=== PATIENT | female | born 1970 | race Caucasian/White ===

== ENCOUNTER 2024-09-26 20:19 | Emergency (ER) | payer BC, SELFPAY ==
[2024-09-26 20:26] VITALS: BP 122/78
[2024-09-26 21:00] LABS: % Basophils 0.6 % (0-2); % Immature Granulocytes 0.1 % (0-0.5); % Lymphocytes 24.3 % (20.5-51.1); % Monocytes 8.5 % (1.7-9.3); % Neutrophils 65.5 % (42.2-75.2); Absolute Eosinophils 0.1 10^3/uL (0-0.7); Absolute Lymphocytes 1.8 10^3/uL (1.2-3.4); Absolute Monocytes 0.6 10^3/uL (0.1-0.6); Absolute Neutrophils 4.8 10^3/uL (1.4-6.5); Hematocrit 46.1 % (37.0-47.0); Hemoglobin 15.5 g/dL (12.0-16.0); Mean Corp Hgb Conc. 33.6 g/dL (33.0-37.0); Mean Corpuscular Hgb 30.6 pg (27.0-31.0); Mean Corpuscular Volume 90.9 fL (81.0-99.0); Mean Platelet Volume 9.8 fL (7.4-10.4); Nucleated Red Blood Cells % 0 %; Platelet Count 155 10^3/uL (130-400); Red Blood Cell Count 5.07 10^6/uL (4.20-5.40); White Blood Cell Count 7.3 10^3/uL (4.8-10.8)
[2024-09-26 21:29] LABS: Troponin I < 0.012 ng/ml
[2024-09-26 21:30] LABS: ALT (SGPT) 15 U/L (0-35); AST (SGOT) 17 U/L (14-36); Albumin 4.3 g/dl (3.5-5.0); Alkaline Phosphatase 83 U/L (38-126); Blood Urea Nitrogen 8 mg/dl (7-17); Calcium 10.4 mg/dl (8.4-10.2); Carbon Dioxide 27 mmol/L (22-30); Chloride 102 mmol/L (98-107); Glucose 117 mg/dl (70-99); Potassium 4.3 mmol/L (3.5-5.1); Sodium 136 mmol/L (135-145); Total Bilirubin 0.6 mg/dl (0.2-1.3); Total Protein 6.9 g/dl (6.3-8.2); eGFR > 60.00
[2024-09-26 22:16] LABS: D-Dimer 0.61 ug/mlFEU (0.00-0.50)
[2024-09-26 23:02] VITALS: BP 130/84; BMI 16.8
[2024-09-27 01:00] VITALS: BP 120/74
[2024-09-27 03:11] VITALS: BP 96/57
--- NOTE | 2024-09-27 03:12 | ED.GENMED ---
History of Present Illness
General
Chief Complaint: Breathing Problem
Source: patient and spouse
Time Seen by Provider: 09/26/24 22:51
History of Present Illness
History of Present Illness:
54-year-old female history of COPD who does continue to smoke. She presents with pain in her right upper back. States it hurts sort of radiating around to the right side when she takes a deep breath. Sent from urgent care to rule out a PE.
Patient states it hurts most when she takes deep breath. Mild cough but no fevers. No vomiting. No chest pain.
Past History
Past History
ED Past Medical History: COPD
ED Past Surgical History: Orthopedic
Social History
Tobacco: Smoker
Phy Exam
Physical Exam
Physical Exam:
CONSTITUTIONAL Patient alert and oriented to person, place and time. Well-appearing. Vital signs reviewed.
HEAD atraumatic, normocephalic.
EYES eyelids normal to inspection, Extraocular muscles intact, Conjunctiva normal, Sclera normal.
NECK normal range of motion, Trachea midline, no jugular venous distention.
RESPIRATORY CHEST No respiratory distress noted, Chest expansion equal, Bilateral breath sounds clear.
CARDIOVASCULAR regular rate and rhythm, Heart sounds normal.
ABDOMEN abdomen nontender, Bowel sounds normal. No distention.
BACK normal inspection, no obvious deformities
UPPER EXTREMITY range of motion normal, Motor strength normal, no cyanosis, no edema.
LOWER EXTREMITY range of motion normal, Motor strength normal, no cyanosis, no edema.
NEURO Speech normal, No focal motor deficits, Estrella coma scale 15, Memory normal, Cranial Nerves intact to screening exam.
SKIN skin warm, dry, and normal in color.
Scores
Heart Failure Risk
Heart Failure Risk Score: Not Applicable
Course
Orders/Labs/Results
Orders:
Orders
09/26/24 20:24
ECG [Electrocardiogram (*1)] Urgent
Reason for Study: Shortness of Breath
EKG- Treatment ONCE
09/26/24 20:50
CMP [Comprehensive Metabolic Panel] Urgent
Complete Blood Count/With Diff Urgent
Troponin I Urgent
09/26/24 21:58
D-Dimer Routine
09/27/24 00:05
CT Chest PE Study Urgent
Reason For Exam: R pleuritic pain, r/o pe
09/27/24 03:12
LevoFLOXacin [Levaquin] 750 mg PO NOW STA
Abnormal Lab Results
09/26/24 09/26/24
20:50 21:58
D-Dimer 0.61 H ug/mlFEU
(0.00-0.50)
Glucose 117 H mg/dl
(70-99)
Calcium 10.4 H mg/dl
(8.4-10.2)
09/26/24 20:50
09/26/24 20:50
Vital Signs
Initial and Last Documented VS:
Initial Vital Signs
Temp Pulse Resp BP Pulse Ox
99.0 F 99 20 122/78 96
09/26/24 20:26 09/26/24 20:26 09/26/24 20:26 09/26/24 20:26 09/26/24 20:26
Last Documented Vital Signs
Temp Pulse Resp BP Pulse Ox
99.0 F 80 19 96/57 93
09/26/24 20:26 09/27/24 01:30 09/27/24 01:30 09/27/24 03:11 09/27/24 03:11
MDM/Problems Addressed
Differential Diagnosis Includes:
Pneumothorax, PE, pneumonia, COPD exacerbation
MDM/Problems Addressed:
COPD, acute infiltrative process
*Radiology
Radiology exam reviewed: preliminary read by ED provider (No PE, infiltrate noted) and radiology read reviewed
*Pulse Oximetry
Patient hypoxic: no
*EKG
Interpreted by ED Provider?: Yes
Interpretation: abnormal
Rate: normal
Rhythm: sinus
Osmond: right axis deviation
QRS Pattern: normal QRS
Ischemia: no ischemia
*Workers Compensation Manager Interpretation
Rate: normal
Interpretation: normal
Rhythm: sinus
*Critical Care Note
Total Time (30-74mins, 75-104mins- exclusive of procedures): Not Applicable
Data Reviewed
Source: patient and spouse
Patient Management
Escalation/DeEscalation of care consider admission/obs:
Patient appears well and stable. Given the pleuritic nature of her pain a history of COPD with infiltrative process, cover with antibiotics. However I strongly encouraged her to follow-up with pulmonology to ensure that this process clears after
treatment antibiotics.
ED Attending Note
-
Portions of this chart may have been created with voice recognition software.� Occasional wrong word or��sound alike� substitutions may have occurred due to the inherent limitations of voice recognition software.
Discharge Plan
Departure
Patient Disposition: Home (Routine Discharge)
Date of Disposition: 09/27/24
Time of Disposition: 03:15
Patient with high blood pressure during this ER visit?: No
Discharge Problem:
Pneumonia
Instructions: Pneumonia
Prescriptions:
New
levofloxacin 750 mg tablet
750 mg PO DAILY 7 Days Qty: 7 0RF
Referrals:
NONE,* [Family Provider] -
Activity Restrictions/Additional Instructions:
Please see your doctor in the next 3 to 5 days for follow-up and reevaluation. Please also see your ward helper next 1 week for follow-up and reevaluation as repeat imaging should be performed after you finish your course of antibiotics to ensure
your findings have cleared. Return immediately for coughing up blood, worsening symptoms, vomiting, shortness of breath or any other concerns.
Interventions
Interventions:
*Risk Screen - Suicide Last Done: 09/26/24 23:02
*General Assessment Last Done: 09/26/24 23:02
*Neglect/Abuse Screening Last Done: 09/26/24 23:02
*ED COVID-19 Vaccine History Last Done: 09/26/24 23:02
*Nursing Disposition Last Done: 09/27/24 03:31
ED- Cardiac Assessment Last Done: 09/26/24 23:02
ED- Pulmonary Assessment Last Done: 09/26/24 23:02
Discharge Date and Time
Discharge Date/Time: 09/27/24 04:31
Print Language: YAKUT
[2024-09-27] MEDS: LEVAQUIN 750 MG PO (03:18)
== END 2024-09-27 04:31 | disposition home or self-care (01) ==
LOC: EMR 20:19
PROVIDERS: EMERGENCY PHYSICIAN Emergency Medicine
DX: J18.9 Pneumonia, unspecified organism (principal); J44.0 Chronic obstructive pulmonary disease with (acute) lower respiratory infection; F17.200 Nicotine dependence, unspecified, uncomplicated
CPT/HCPCS: 99284; 71275; 80053; 84484; 85025; 85379; 93005; Q9967

== ENCOUNTER → 2024-10-13 08:00 | Outpatient (REF) | payer BC, SELFPAY | LOC: HWRCS 08:00 | PROVIDERS: ATTENDING PHYSICIAN Internal Medicine Cardiovascular Disease | DX: R07.89 Other chest pain (principal) | CPT/HCPCS: 78452; 93017; A9500; J2785 ==

== ENCOUNTER → 2024-10-15 15:56 | Outpatient (REF) | payer BC, SELFPAY | LOC: HWRCS 15:56 | PROVIDERS: ATTENDING PHYSICIAN Internal Medicine Cardiovascular Disease | DX: R06.02 Shortness of breath (principal) | CPT/HCPCS: 93306 ==